=== PATIENT | male | born 1960 | race African-American/Black ===

== ENCOUNTER 2018-11-03 12:30 | Inpatient (IN) | payer OTHER ==
[2018-11-03 13:04] VITALS: BMI 19.3
--- NOTE | 2018-11-03 15:19 | HP ---
COWS - Scale Resting Pulse: 1= [place] 81-100 Sweatin=Flushed/Facial Moisture Restless Observation: 1= Difficult to Sit Still Pupil Size: 1= Pupils >than Normal Bone or Joint Aches: 2= Severe Diffuse Aches Runny Nose/ Eye Tearin= Runny Nose/Eyes GI Upset > 30mins: 1= Stomach Cramp Tremor Observation: 1= Tremor [place], Not Seen Yawning Observation: 0= None Anxiety or Irritability: 1=Feels Anxious/Irritable Goose Flesh Skin: 0=Smooth Skin COWS Score: 12 CIWA Score - Admission Criteria OASAS Guidelines: Admission for Medically Managed Detox: Requires at least one of the followin. CIWA greater than 12 2. Seizures within the past 24 hours 3. Delirium tremens within the past 24 hours 4. Hallucinations within the past 24 hours 5. Acute intervention needed for co occurring medical disorder 6. Acute intervention needed for co occurring psychiatric disorder 7. Severe withdrawal that cannot be handled at a lower level of care (continued vomiting, continued diarrhea, abnormal vital signs) requiring intravenous medication and/or fluids 8. Patient presents the following: CIWA greater than 12 Admission Criteria Met: Admission criteria met Admission ROS [facility] - [facility] Chief Complaint: I need to stop using heroin , Allergies/Adverse Reactions: Allergies Allergy/AdvReac Type Severity Reaction Status Date / Time No Known Allergies Allergy Verified 11/03/18 15:33 History of Present Illness: 58 y/o m pt with lonstanding h/o heroin dep. seeking detox. Exam Limitations: No Limitations - Ebola screening Have you traveled outside of the country in the last 21 days: No Have you had contact with anyone from an Ebola affected area: No Have you been sick,other than usual withdrawal symptoms: No Do you have a fever: No - Review of Systems Constitutional: Loss of Appetite, Malaise, Night Sweats, Changes in sleep, Unintentional Wgt. Loss EENT: reports: Blurred Vision, Nose Congestion Respiratory: reports: Shortness of Breath Cardiac: reports: No Symptoms Reported GI: reports: Nausea, Abdominal cramping, Other (bloating) : reports: Frequency Musculoskeletal: reports: Muscle Pain (thighs vania.) Integumentary: reports: Dryness, Pruritus (vania lower extremities) Neuro: reports: Headache Endocrine: reports: Increased Urine Hematology: reports: No Symptoms Reported Psychiatric: reports: Anxious Other Systems: Reviewed and Negative Patient History - Patient Medical History Hx Anemia: No Hx Asthma: Yes (proventil inh ) Hx Chronic Obstructive Pulmonary Disease (COPD): No Hx Cancer: No Hx Cardiac Disorders: No Hx Congestive Heart Failure: No Hx Hypertension: No Hx Hypercholesterolemia: No Hx Pacemaker: No HX Cerebrovascular Accident: No Hx Seizures: No Hx Dementia: No Hx Diabetes: No Hx Gastrointestinal Disorders: Yes (indigestion ) Hx Liver Disease: No Hx Genitourinary Disorders: No Hx Sexually Transmitted Disorders: Yes Hx Renal Disease (ESRD): No Hx Thyroid Disease: No Hx Human Immunodeficiency Virus (HIV): No (2018) Hx Hepatitis C: No Hx Depression: Yes Hx Suicide Attempt: No Hx Bipolar Disorder: No Hx Schizophrenia: No - Patient Surgical History Past Surgical History: No - PPD History Previous Implant?: Yes Documented Results: Positive w/o proof Results: started on inh PPD to be Administered?: No - Reproductive History Patient is a Female of Child Bearing Age (11 -55 yrs old): No - Smoking Cessation Smoking history: Current every day smoker Have you smoked in the past 12 months: Yes Aproximately how many cigarettes per day: 20 Cigars Per Day: 0 Hx Chewing Tobacco Use: No Initiated information on smoking cessation: Yes 'Breaking Loose' booklet given: 11/03/18 - Substance & Tx. History Hx Alcohol Use: No Hx Substance Use: Yes Substance Use Type: Heroin, Opiates Hx Substance Use Treatment: Yes ([facility] - 2011) - Substances Abused Heroin Route: Inhalation Frequency: Daily Amount used: 4-6 bags /d Age of first use: 24 Date of Last Use: 11/03/18 Family Disease History - Family Disease History Family Disease History: Other: Father (hiv), Mother (hiv ) Admission Physical Exam BHS - Vital Signs Vital Signs: Vital Signs - 24 hr 11/03/18 13:01 Temperature 97.6 F Pulse Rate 86 Respiratory 18 Rate Blood Pressure 102/68 58 y/o thin male pt in nad, ambulating well , cooperative with exam -who appears older than stated age . - Physical General Appearance: Yes: Disheveled, Thin, Sweating, Anxious HEENTM: Yes: EOMI, Hearing grossly Normal, Normocephalic, Normal Voice, FABIAN, Other (edentulous upper and lower) Respiratory: Yes: Within Normal Limits, Lungs Clear, Normal Breath Sounds, No Respiratory Distress Neck: Yes: Supple, Trachea in good position Breast: Yes: Within Normal Limits Cardiology: Yes: Regular Rhythm, Regular Rate, S1, S2 Abdominal: Yes: Non Tender, Flat, Soft, Increased Bowel Sounds Genitourinary: Yes: Frequency Back: Yes: Decreased Range of Motion Musculoskeletal: Yes: Back pain Extremities: Yes: Tremors Neurological: Yes: uat tester II-XII NML intact, Fully Oriented, Alert, Motor Strength 5/5, Normal Response Integumentary: Yes: Diaphoresis (shirt wet), Other (driness of lower extremities avnia) Lymphatic: Yes: Within Normal Limits - Diagnostic (1) Heroin use disorder, moderate, dependence Current Visit: Yes Status: Acute (2) Cannabis abuse Current Visit: Yes Status: Chronic (3) Nicotine dependence Current Visit: Yes Status: Chronic Qualifiers: Nicotine product type: cigarettes Substance use status: uncomplicated Qualified Code(s): F17.210 - Nicotine dependence, cigarettes, uncomplicated (4) Acute bilateral low back pain Current Visit: Yes Status: Chronic (5) Xerosis of skin Current Visit: Yes Status: Chronic Cleared for Admission [facility] - Detox or Rehab [facility] Level of Care: Medically Managed Detox Regimen/Protocol: Methadone [facility] Breath Alcohol Content Breath Alcohol Content: 0.008 Urine Drug Screen - Results Drug Screen Negative: No Urine Drug Screen Results: THC-Marijuana, OPI-Opiates, FEN-Fentanyl
[2018-11-03] MEDS ORDERED: MAGNESIUM HYDROX 2400MG/30ML ORAL SUSPENSION 30 ML CUP PO PRN (15:45)
[2018-11-03] MEDS ORDERED: P-EPHED 60MG/TRIPROLIDI 2.5MG TABLET PO PRN (15:45)
[2018-11-03] MEDS ORDERED: MAGNESIUM CITRATE 300 ML BOTTLE PO PRN (15:45)
[2018-11-03] MEDS ORDERED: MAG HYDROX/AL HYDROX/SIMETH 30 ML UNIT-DOSE CUP PO PRN (15:45)
[2018-11-03] MEDS ORDERED: IBUPROFEN 400 MG TABLET (FP) PO PRN (15:45)
[2018-11-03] MEDS ORDERED: ACETAMINOPHEN 325 MG TABLET (FP) PO PRN (15:45)
[2018-11-03] MEDS ORDERED: guaiFENesin/D-METHORPHAN HB 10 ML UNIT-DOSE CUPS PO PRN (15:45)
[2018-11-03] MEDS ORDERED: MENTHOL/PHENOL 1 EACH UD MM PRN (15:45)
[2018-11-03] MEDS ORDERED: LOPERAMIDE HCL 2 MG CAPSULE PO PRN (15:45)
[2018-11-03] MEDS ORDERED: hydrOXYzine PAMOATE 25 MG CAPSULE (FP) PO PRN (15:45)
[2018-11-03] MEDS ORDERED: METHADONE HCL 10 MG TABLET (FOR DETOX USE ONLY) PO ONE ×2 (15:50→23:00)
[2018-11-03] MEDS: diazePAM 5 MG TABLET PO PRN (17:43)
[2018-11-03] MEDS ORDERED: MELATONIN 5 MG TABLETS PO PRN (22:00)
[2018-11-03] MEDS: THIAMINE HCL 100 MG TABLET (FP) PO SCH (22:25)
[2018-11-03] MEDS: NICOTINE POLACRILEX 4 MG GUM BC PRN (22:31)
[2018-11-04] MEDS: diazePAM 5 MG TABLET PO PRN ×2 (05:48→10:35)
[2018-11-04] MEDS: NICOTINE POLACRILEX 4 MG GUM BC PRN (05:50)
[2018-11-04 09:57] LABS: ALBUMIN 3.4 g/dl (3.4-5.0); ALK PHOS 121 U/L (45-117); ANION GAP 6 MMOL/L (8-16); BILIRUBIN,TOTAL 0.7 mg/dL (0.2-1); BLOOD UREA NITROGEN 14 mg/dL (7-18); CALCIUM 8.7 mg/dL (8.5-10.1); CHLORIDE 105 mmol/L (98-107); CO2 29 mmol/L (21-32); GLUCOSE,RANDOM 100 mg/dL (74-106); POTASSIUM 4.2 mmol/L (3.5-5.1); SGOT/AST 18 U/L (15-37); SGPT/ALT 13 U/L (13-61); SODIUM 140 mmol/L (136-145); TOT PROT 6.7 g/dl (6.4-8.2)
[2018-11-04] MEDS ORDERED: PRENATAL VITAMINS W/ FOLIC ACID TABLET (FP) PO SCH (10:00)
[2018-11-04] MEDS ORDERED: METHADONE HCL 10 MG TABLET (FOR DETOX USE ONLY) PO ONE (10:00)
[2018-11-04] MEDS ORDERED: NICOTINE 21 MG/24 HOURS TOPICAL PATCH TD SCH (10:00)
[2018-11-04 10:14] LABS: HEMATOCRIT 38.9 % (35.4-49); HEMOGLOBIN 13.2 GM/dL (11.7-16.9); MCHC 33.8 g/dl (32.0-35.9); MEAN CELL VOLUME 82.9 fl (80-96); MEAN PLT VOLUME 9.1 fl (7.5-11.1); PLATELET COUNT 204 K/MM3 (134-434); RDW 13.7 % (11.9-15.9)
[2018-11-04] MEDS ORDERED: TRIMETHOBENZAMIDE HCL 300 MG CAPSULE PO PRN (12:58)
[2018-11-04] MEDS ORDERED: LISINOPRIL 10 MG TABLET (FP) PO ONE (15:04)
--- NOTE | 2018-11-04 15:07 | PN ---
BHS COWS - Scale Resting Pulse: 1= [place] 81-100 Sweatin= Chills/Flushing Restless Observation: 0= Sits Still Pupil Size: 0= Normal to Room Light Bone or Joint Aches: 2= Severe Diffuse Aches Runny Nose/ Eye Tearin= None GI Upset > 30mins: 0= None Tremor Observation of Outstretched Hands: 0= None Yawning Observation: 2= >3x During Session Anxiety or Irritability: 2=Irritable/Anxious Goose Flesh Skin: 3=Piloerection COWS Score: 11 BHS Progress Note (SOAP) Subjective: Body Aches, Fatigue, Sweating. Objective: PATIENT A & O X 3. IN NO ACUTE DISTRESS. PATIENT DENIES KNOWN HISTORY OF HTN. 11/04/18 15:06 Vital Signs Temperature 98.7 F 11/04/18 14:08 Pulse Rate 91 H 11/04/18 14:08 Respiratory Rate 18 11/04/18 14:08 Blood Pressure 142/91 11/04/18 14:08 O2 Sat by Pulse Oximetry (%) Laboratory Tests 11/04/18 11/04/18 11/04/18 07:15 07:15 07:15 WBC 8.0 RBC 4.70 Hgb 13.2 Hct 38.9 MCV 82.9 MCH 28.0 MCHC 33.8 RDW 13.7 Plt Count 204 MPV 9.1 Sodium 140 Potassium 4.2 Chloride 105 Carbon Dioxide 29 Anion Gap 6 L BUN 14 Creatinine 1.0 Creat Clearance w eGFR > 60 Random Glucose 100 Calcium 8.7 Total Bilirubin 0.7 AST 18 ALT 13 Alkaline Phosphatase 121 H Total Protein 6.7 Albumin 3.4 RPR Titer Nonreactive HIV 1&2 Antibody Screen HIV P24 Antigen 11/04/18 07:15 WBC RBC Hgb Hct MCV MCH MCHC RDW Plt Count MPV Sodium Potassium Chloride Carbon Dioxide Anion Gap BUN Creatinine Creat Clearance w eGFR Random Glucose Calcium Total Bilirubin AST ALT Alkaline Phosphatase Total Protein Albumin RPR Titer HIV 1&2 Antibody Screen Negative HIV P24 Antigen Negative LABS NOTED. Assessment: 11/04/18 15:06 WITHDRAWAL SYMPTOMS. ELEVATED BLOOD PRESSURE. 11/04/18 15:07 Plan: CONTINUE DETOX. LISINOPRIL, 10 MG PO DAILY FOR ELEVATED BLOOD PRESSURE.
[2018-11-04] MEDS: THIAMINE HCL 100 MG TABLET (FP) PO SCH (22:46)
[2018-11-05] MEDS ORDERED: LISINOPRIL 10 MG TABLET (FP) PO SCH (10:00)
[2018-11-05] MEDS ORDERED: METHADONE HCL 5 MG TABLET (FOR DETOX USE ONLY) PO ONE (10:00)
[2018-11-05 10:33] VITALS: BP 157/85; PULSE 68; TEMP 97
--- NOTE | 2018-11-05 18:29 | DS ---
[facility] Detox Discharge Summary Admission Date: 11/03/18 Discharge Date: 11/05/18 - History Present History: Cannabis Dependence, Opioid Dependence Additional Comments: Patient demanded to leave AMA despite encouragement from staff to complete detox. As per patient, he has things to do. Patient is A/A/Ox3, in nad, ambulatory. Patient instructed to call 911 if feeling sick or any withdrawal symptoms and to see his PCP within 3 days. Patient verbalized understanding. Pertinent Past History: HTN Chronic back pain - Physical Exam Results Vital Signs: Vital Signs Temperature 97.0 F L 11/05/18 10:00 Pulse Rate 68 11/05/18 10:00 Respiratory Rate 18 11/05/18 10:00 Blood Pressure 157/85 11/05/18 10:00 O2 Sat by Pulse Oximetry (%) Pertinent Admission Physical Exam Findings: Withdrawal symptoms Laboratory Tests 11/04/18 11/04/18 11/04/18 07:15 07:15 07:15 WBC 8.0 RBC 4.70 Hgb 13.2 Hct 38.9 MCV 82.9 MCH 28.0 MCHC 33.8 RDW 13.7 Plt Count 204 MPV 9.1 Sodium 140 Potassium 4.2 Chloride 105 Carbon Dioxide 29 Anion Gap 6 L BUN 14 Creatinine 1.0 Creat Clearance w eGFR > 60 Random Glucose 100 Calcium 8.7 Total Bilirubin 0.7 AST 18 ALT 13 Alkaline Phosphatase 121 H Total Protein 6.7 Albumin 3.4 RPR Titer Nonreactive HIV 1&2 Antibody Screen HIV P24 Antigen 11/04/18 07:15 WBC RBC Hgb Hct MCV MCH MCHC RDW Plt Count MPV Sodium Potassium Chloride Carbon Dioxide Anion Gap BUN Creatinine Creat Clearance w eGFR Random Glucose Calcium Total Bilirubin AST ALT Alkaline Phosphatase Total Protein Albumin RPR Titer HIV 1&2 Antibody Screen Negative HIV P24 Antigen Negative Labs reviewed - Medication Discharge Medications: Ambulatory Orders NK [No Known Home Medication] 11/03/18 - Diagnosis (1) Opioid dependence with withdrawal Status: Acute (2) Cannabis dependence Status: Chronic (3) Acute bilateral low back pain Status: Chronic (4) Nicotine dependence Status: Chronic Qualifiers: Nicotine product type: cigarettes Substance use status: uncomplicated Qualified Code(s): F17.210 - Nicotine dependence, cigarettes, uncomplicated (5) Xerosis of skin Status: Acute (6) Elevated blood pressure reading without diagnosis of hypertension Status: Acute - AMA Did Patient Leave Against Medical Advice: Yes (Instructed to call 911 if feeling sick or withdrawal symptoms)
--- NOTE | 2018-11-05 19:40 | EKG ---
Test Reason : Blood Pressure : / mmHG Vent. Rate : 076 BPM Atrial Rate : 076 BPM P-R Int : 152 ms QRS Dur : 092 ms QT Int : 404 ms P-R-T Axes : 056 054 064 degrees QTc Int : 454 ms NORMAL SINUS RHYTHM NORMAL ECG NO PREVIOUS ECGS AVAILABLE Confirmed by RM GEE MD ([id number]) on 11/05/2018 7:40:38 PM Referred By: Confirmed By:RM GEE MD
[2018-11-06] MEDS ORDERED: METHADONE HCL 5 MG TABLET (FOR DETOX USE ONLY) PO ONE (10:00)
[2018-11-07] MEDS ORDERED: METHADONE HCL 10 MG TABLET (FOR DETOX USE ONLY) PO ONE (10:00)
[2018-11-08] MEDS ORDERED: METHADONE HCL 5 MG TABLET (FOR DETOX USE ONLY) PO ONE (06:00)
== END 2018-11-05 12:08 | disposition left against medical advice (07) | DRG 770 ==
LOC: YASAS 12:30 → Y3N 16:54
PROVIDERS: ADMIT Neuromusculoskeletal Medicine & OMM; ATTEND Neuromusculoskeletal Medicine & OMM
PROC: HZ2ZZZZ Detoxification Services for Substance Abuse Treatment (ICD-10-PCS; principal; 2018-11-03)
DX: F11.23 Opioid dependence with withdrawal (principal); F12.20 Cannabis dependence, uncomplicated; F17.210 Nicotine dependence, cigarettes, uncomplicated; M54.5 Low back pain; R03.0 Elevated blood-pressure reading, without diagnosis of hypertension; L85.3 Xerosis cutis; J45.909 Unspecified asthma, uncomplicated; Z59.0 Homelessness
CPT/HCPCS: 36415; 80053; 85027; 86593; 87389; 93005; 93010